=== PATIENT | male | born 2000 | race Caucasian/White ===

== ENCOUNTER 2019-11-14 11:35 | Emergency (ER) | payer MEDICAID ==
[~2019-11-14] VITALS: Ht 188 cm; Wt 65.9 kg
[~2019-11-14 11:35] MED LIST: DIPH-423 PO; HYDR28CR14 TP
[2019-11-14 11:39] VITALS: BP 129/72
[2019-11-14] MEDS ORDERED: DOXY100C2 PO (12:57)
== END 2019-11-14 13:28 | disposition home or self-care (01) ==
LOC: ER 11:35
DX: S81.801A Unspecified open wound, right lower leg, initial encounter (principal); L02.415 Cutaneous abscess of right lower limb; Z79.899 Other long term (current) drug therapy; X58.XXXA Exposure to other specified factors, initial encounter; Y93.89 Activity, other specified; Y92.89 Other specified places as the place of occurrence of the external cause; Y99.8 Other external cause status
CPT/HCPCS: 99283

== ENCOUNTER 2020-03-17 11:33 | Emergency (ER) | payer MEDICAID ==
[~2020-03-17] VITALS: Ht 188 cm; Wt 65.5 kg
[2020-03-17 11:41] VITALS: BP 115/56
[2020-03-17] MEDS ORDERED: HYDROcodone/acetaminophen 5mg/325mg tablet PO ONE (12:30)
[2020-03-17] MEDS ORDERED: ondansetron 4mg rapidly disintigrating tab PO ONE (12:30)
[2020-03-17] MEDS ORDERED: BENZ5.1G TOP (12:34)
[2020-03-17] MEDS ORDERED: IBUP-1984 PO (12:34)
[2020-03-17] MEDS ORDERED: PENI500T2 PO (12:34)
--- NOTE | 2020-03-17 12:42 | NUR ---
Pt seen, evaluated, and treated by [employer] prior grocery clerk or intervention. See MSE notes.
== END 2020-03-17 12:47 | disposition home or self-care (01) ==
LOC: ER 11:33
DX: K02.9 Dental caries, unspecified (principal); K08.89 Other specified disorders of teeth and supporting structures; Z79.2 Long term (current) use of antibiotics; Z79.899 Other long term (current) drug therapy
CPT/HCPCS: 99283

== ENCOUNTER 2020-03-20 05:12 | Emergency (ER) | payer MEDICAID ==
[~2020-03-20] VITALS: Ht 188 cm; Wt 68.1 kg
[~2020-03-20 05:12] MED LIST changes: +BENZ5.1G TOP; +IBUP-1984 PO; +PENI500T2 PO
[2020-03-20 05:16] VITALS: BP 132/90
[2020-03-20] MEDS ORDERED: ketorolac trometh. 30mg/ml inj. IM ONE (05:25)
== END 2020-03-20 05:39 | disposition home or self-care (01) ==
LOC: ER 05:12
DX: K08.89 Other specified disorders of teeth and supporting structures (principal); Z79.2 Long term (current) use of antibiotics; Z79.899 Other long term (current) drug therapy; Z59.0 Homelessness; Z72.89 Other problems related to lifestyle
CPT/HCPCS: 96372; 99283; J1885

== ENCOUNTER 2020-04-18 12:46 | Emergency (ER) | payer MEDICAID ==
[~2020-04-18] VITALS: Ht 188 cm; Wt 69.3 kg
[~2020-04-18 12:46] MED LIST changes: -IBUP-1984 PO; -PENI500T2 PO
[2020-04-18 12:49] VITALS: BP 117/68
[2020-04-18] MEDS ORDERED: PENI500T2 PO (14:44)
[2020-04-18] MEDS ORDERED: CHLO473M3 PO (14:44)
== END 2020-04-18 14:50 | disposition home or self-care (01) ==
LOC: ER 12:46
DX: K08.89 Other specified disorders of teeth and supporting structures (principal); K02.9 Dental caries, unspecified; R68.84 Jaw pain; Z59.0 Homelessness; Z79.2 Long term (current) use of antibiotics; Z79.899 Other long term (current) drug therapy
CPT/HCPCS: 99283

== ENCOUNTER 2020-07-21 16:43 | Emergency (ER) | payer MEDICAID ==
[~2020-07-21] VITALS: Ht 188 cm; Wt 73.8 kg
[~2020-07-21 16:43] MED LIST changes: +CHLO473M3 PO
--- NOTE | 2020-07-21 17:01 | NUR ---
NOT IN LOBBY
[2020-07-21 17:20] VITALS: BP 116/64
[2020-07-21] MEDS ORDERED: CefTRIAXone 250MG IM Kit w/LIDOcaine IM STA (19:43)
[2020-07-21] MEDS ORDERED: DOXY-1 PO (19:43)
[2020-07-21] MEDS ORDERED: metroNIDAZOLE 500mg tablet PO ONE (19:45)
== END 2020-07-21 20:34 | disposition home or self-care (01) ==
LOC: ER 16:44
DX: A64 Unspecified sexually transmitted disease (principal); Z79.2 Long term (current) use of antibiotics; Z79.899 Other long term (current) drug therapy
CPT/HCPCS: 36415; 87491; 87591; 96372; 99283; J0696; J3490

== ENCOUNTER 2022-03-25 16:22 | Emergency (ER) | payer MEDICAID ==
[~2022-03-25] VITALS: Ht 188 cm; Wt 68.2 kg
[2022-03-25 18:41] VITALS: BP 133/77
[2022-03-25] MEDS ORDERED: KEN0.1O TP (18:59)
--- NOTE | 2022-03-25 19:39 | NUR ---
nurse called mission to verify placement. [facility] called to [facility] pick[facility] pt.
--- NOTE | 2022-03-25 19:43 | NUR ---
food provided. weather clothes already in possession.
== END 2022-03-25 20:09 | disposition home or self-care (01) ==
LOC: ER 16:23
DX: L30.9 Dermatitis, unspecified (principal); F17.200 Nicotine dependence, unspecified, uncomplicated; F15.20 Other stimulant dependence, uncomplicated
CPT/HCPCS: 99283

== ENCOUNTER 2023-02-20 14:00 | Emergency (ER) | payer MEDICAID ==
[~2023-02-20] VITALS: Ht 188 cm; Wt 84.2 kg
[2023-02-20] MEDS ORDERED: ibuprofen 200mg tablet PO ONE (17:15)
[2023-02-20] MEDS ORDERED: amox tr/potassium clavulanate 875/125mg TAB PO ONE (17:15)
[2023-02-20] MEDS ORDERED: AMOX-117 PO (17:17)
[2023-02-20] MEDS ORDERED: METR-159 PO (17:19)
[2023-02-20 17:37] VITALS: BP 122/76; PULSE 77; RESP 16; TEMP 98.9; O2SAT 97
== END 2023-02-20 17:39 | disposition home or self-care (01) ==
LOC: ER 14:00
DX: K05.10 Chronic gingivitis, plaque induced (principal); K04.7 Periapical abscess without sinus; Z79.899 Other long term (current) drug therapy
CPT/HCPCS: 99283

== ENCOUNTER 2023-07-23 14:06 | Emergency (ER) | payer MEDICAID ==
[~2023-07-23] VITALS: Ht 188 cm; Wt 58.2 kg
[2023-07-23 14:10] VITALS: BP 119/71; PULSE 100; RESP 18; TEMP 98.6; O2SAT 99
== END 2023-07-23 14:54 | disposition left against medical advice (07) ==
LOC: ER 14:07
DX: F41.9 Anxiety disorder, unspecified (principal); Z53.21 Procedure and treatment not carried out due to patient leaving prior to being seen by health care provider

== ENCOUNTER 2023-08-27 04:16 | Emergency (ER) | payer MEDICAID ==
[~2023-08-27] VITALS: Ht 185.4 cm; Wt 75.5 kg
[2023-08-27 04:19] VITALS: BP 127/69; PULSE 89; RESP 16; TEMP 98.3; O2SAT 99
== END 2023-08-27 05:35 | disposition left against medical advice (07) ==
LOC: ER 04:17
DX: K08.89 Other specified disorders of teeth and supporting structures (principal); Z53.21 Procedure and treatment not carried out due to patient leaving prior to being seen by health care provider

== ENCOUNTER 2023-11-30 01:12 | Emergency (ER) | payer MEDICAID ==
[~2023-11-30] VITALS: Ht 185.4 cm; Wt 68.8 kg
[~2023-11-30 01:12] MED LIST changes: +CHLO473M13 PO; -CHLO473M3 PO
[2023-11-30 01:16] VITALS: BP 119/62; PULSE 102; RESP 18; TEMP 98.5; O2SAT 97
[2023-11-30] MEDS ORDERED: AMOX-580 PO (01:55)
[2023-11-30] MEDS: amox tr/potassium clavulanate 875/125mg TAB PO ONE (02:08)
== END 2023-11-30 02:13 | disposition home or self-care (01) ==
LOC: ER 01:13
DX: K08.89 Other specified disorders of teeth and supporting structures (principal); Z79.2 Long term (current) use of antibiotics; Z79.899 Other long term (current) drug therapy
CPT/HCPCS: 99283